=== PATIENT | male | born 1975 ===

== ENCOUNTER 2022-05-03 11:45 | Inpatient (IN) | payer OTHER ==
[~2022-05-03] VITALS: Ht 177.8 cm; Wt 87.5 kg
[2022-05-03] MEDS ORDERED: ATACAND16 MG PO (12:42)
[2022-05-03] MEDS ORDERED: LIPITOR20 MG PO (12:42)
[2022-05-09] MEDS ORDERED: ANALPRAM HC 2.530 GM RECTAL (09:04)
[2022-05-09] MEDS ORDERED: TAMS0.4C PO (09:05)
== END 2022-05-09 11:26 | disposition home or self-care (01) | DRG 395 ==
LOC: O/R 05-08 06:00 → SURH 05-08 06:00
PROVIDERS: ADMIT Surgery; ATTEND Surgery
PROC: 0DJD8ZZ Inspection of Lower Intestinal Tract, Via Natural or Artificial Opening Endoscopic (ICD-10-PCS; 2022-05-08)
PROC: 3E0T3BZ Introduction of Anesthetic Agent into Peripheral Nerves and Plexi, Percutaneous Approach (ICD-10-PCS; 2022-05-08)
PROC: 0DBP8ZZ Excision of Rectum, Via Natural or Artificial Opening Endoscopic (ICD-10-PCS; principal; 2022-05-08 11:00)
DX: D3A.026 Benign carcinoid tumor of the rectum (principal); Z20.822 Contact with and (suspected) exposure to COVID-19
CPT/HCPCS: 0184T; 64430; 45300